=== PATIENT | female | born 1990 | race Caucasian/White ===

== ENCOUNTER 2018-10-10 05:19 | Inpatient (IN) | payer MEDICAID ==
[2018-10-10] MEDS ORDERED: CARBOPROST 250 MCG INJ IM ×2 (06:00→09:00)
[2018-10-10] MEDS ORDERED: METHYLERGONOVINE 0.2 MG INJ IM ×2 (06:00→09:00)
[2018-10-10] MEDS ORDERED: OXYTOCIN 30 UNITS/LR 500 ML IV ×2 (06:00→09:00)
[2018-10-10] MEDS ORDERED: MISOPROSTOL 200 MCG TAB PR ×2 (06:00→09:00)
[2018-10-10 06:02] LABS: ADD MAN DIFF? NO
[2018-10-10] MEDS: LACTATED RINGER'S 1,000 ML IV ×3 (06:03→23:09)
[2018-10-10 06:08] LABS: BASOPHILS % 0.3 % (0.0-2.0); EOSINOPHILS % 0.6 % (0.0-7.0); HEMATOCRIT 29.3 % (37.0-47.0); HEMOGLOBIN 9.5 g/dl (12.0-16.0); LYMPHOCYTES # 1.8 10^3/ul (0.8-2.9); LYMPHOCYTES % 26.3 % (15.0-51.0); MEAN CORPUSCULAR HEMOGLOBIN 28.4 pg (29.0-33.0); MEAN CORPUSCULAR HGB CONC 32.4 g/dl (32.0-37.0); MEAN CORPUSCULAR VOLUME 87.5 fl (82.0-101.0); MEAN PLATELET VOLUME 11.9 fl (7.4-10.4); MONOCYTE # 0.5 10^3/ul (0.3-0.9); MONOCYTES % 7.4 % (0.0-11.0); NEUTROPHIL # 4.4 10^3/ul (1.6-7.5); NEUTROPHILS % 64.2 % (39.0-77.0); PLATELET COUNT 171 10^3/UL (140-415); RED BLOOD COUNT 3.35 10^6/ul (4.20-5.40); RED CELL DISTRIBUTION WIDTH 14.6 % (11.5-14.5)
[2018-10-10 06:08] LABS: WHITE BLOOD COUNT 6.9 10^3/ul (4.8-10.8)
[2018-10-10 06:28] LABS: INR 0.94; PROTIME 12.7 Sec (11.9-14.9)
[2018-10-10 06:29] LABS: PARTIAL THROMBOPLASTIN TIME 27.4 Sec (23.0-35.0)
[2018-10-10 07:11] LABS: AMPHETAMINE/METHAMPHETAMINE Negative (NEGATIVE); BARBITURATES Negative (NEGATIVE); BENZODIAZEPINES Negative (NEGATIVE); CANNABINOIDS Negative (NEGATIVE); COCAINE Negative (NEGATIVE); OPIATES Negative (NEGATIVE)
[2018-10-10] MEDS ORDERED: morphine SULFATE/PF (10 MG/10 ML) INJ (07:31)
[2018-10-10] MEDS ORDERED: FENTAnyl 50 MCG/ML VIAL (07:31)
[2018-10-10 07:38] LABS: HEPATITIS B SURFACE ANTIGEN NEGATIVE (NEGATIVE)
[2018-10-10] MEDS ORDERED: DEXAMETHASONE 4 MG/ML 1 ML INJ (07:39)
[2018-10-10] MEDS ORDERED: ONDANSETRON 4 MG INJ (07:39)
[2018-10-10] MEDS ORDERED: PHENYLephrine (100 MCG/ML) 10ML SYG (08:10)
[2018-10-10] MEDS ORDERED: NALOXONE (0.4 MG/ML) INJ IV (08:30)
[2018-10-10] MEDS ORDERED: DIPHENHYDRAMINE 50 MG INJ IV (08:30)
[2018-10-10] MEDS ORDERED: ONDANSETRON 4 MG INJ IV (08:30)
[2018-10-10] MEDS ORDERED: HYDROmorphONE 0.5 MG/0.5 ML SYG IV ×2 (08:30)
[2018-10-10] MEDS ORDERED: ZOLPIDEM 5 MG TAB PO (08:30)
[2018-10-10] MEDS ORDERED: NACL 0.9% 3 ML SYG IV (09:00)
[2018-10-10] MEDS ORDERED: OXYCODONE/ACETAMINOPHEN (5/325) TAB PO ×2 (09:00)
[2018-10-10] MEDS: OXYTOCIN 30 UNITS/LR 500 ML IV ×2 (09:14→13:15)
[2018-10-10] MEDS: CEFAZOLIN 2 GM/50 ML (PMX) 50 ML IVPB ×3 (10:30→23:35)
[2018-10-10] MEDS: KETOROLAC 30 MG INJ IV (10:53)
[2018-10-10] MEDS: LANOLIN HPA 1 PKT TOP (13:13)
[2018-10-10] MEDS: IBUPROFEN 800 MG TAB PO ×2 (14:00→22:00)
[2018-10-10 14:56] LABS: RAPID PLASMA REAGIN NONREACTIVE (NR)
[2018-10-11] MEDS: IBUPROFEN 800 MG TAB PO ×3 (06:00→20:44)
[2018-10-11] MEDS: LACTATED RINGER'S 1,000 ML IV ×2 (06:00→14:00)
[2018-10-11] MEDS: CEFAZOLIN 2 GM/50 ML (PMX) 50 ML IVPB (06:06)
[2018-10-11] MEDS: KETOROLAC 30 MG INJ IV ×2 (06:07→06:56)
[2018-10-11 08:38] LABS: ADD MAN DIFF? NO
[2018-10-11 08:45] LABS: WHITE BLOOD COUNT 8.4 10^3/ul (4.8-10.8)
[2018-10-11 08:45] LABS: BASOPHILS % 0.2 % (0.0-2.0); EOSINOPHILS % 0.4 % (0.0-7.0); HEMATOCRIT 24.9 % (37.0-47.0); HEMOGLOBIN 8.1 g/dl (12.0-16.0); LYMPHOCYTES # 1.8 10^3/ul (0.8-2.9); LYMPHOCYTES % 20.9 % (15.0-51.0); MEAN CORPUSCULAR HEMOGLOBIN 28.4 pg (29.0-33.0); MEAN CORPUSCULAR HGB CONC 32.5 g/dl (32.0-37.0); MEAN CORPUSCULAR VOLUME 87.4 fl (82.0-101.0); MEAN PLATELET VOLUME 11.9 fl (7.4-10.4); MONOCYTE # 0.6 10^3/ul (0.3-0.9); MONOCYTES % 6.6 % (0.0-11.0); NEUTROPHILS % 71.2 % (39.0-77.0); PLATELET COUNT 138 10^3/UL (140-415); RED BLOOD COUNT 2.85 10^6/ul (4.20-5.40); RED CELL DISTRIBUTION WIDTH 14.7 % (11.5-14.5)
[2018-10-11] MEDS: LANOLIN HPA 1 PKT TOP (20:41)
[2018-10-11] MEDS: FERROUS SULFATE (EC) 325 MG TAB PO (20:42)
[2018-10-12] MEDS: IBUPROFEN 800 MG TAB PO ×3 (06:01→22:00)
[2018-10-12 08:28] LABS: ADD MAN DIFF? NO
[2018-10-12 08:34] LABS: WHITE BLOOD COUNT 9.3 10^3/ul (4.8-10.8)
[2018-10-12 08:34] LABS: BASOPHILS % 0.3 % (0.0-2.0); EOSINOPHILS # 0.1 10^3/ul (0.0-0.5); EOSINOPHILS % 1.1 % (0.0-7.0); HEMATOCRIT 28.1 % (37.0-47.0); HEMOGLOBIN 8.8 g/dl (12.0-16.0); LYMPHOCYTES # 1.8 10^3/ul (0.8-2.9); LYMPHOCYTES % 19.4 % (15.0-51.0); MEAN CORPUSCULAR HEMOGLOBIN 27.6 pg (29.0-33.0); MEAN CORPUSCULAR HGB CONC 31.3 g/dl (32.0-37.0); MEAN CORPUSCULAR VOLUME 88.1 fl (82.0-101.0); MEAN PLATELET VOLUME 11.3 fl (7.4-10.4); MONOCYTE # 0.6 10^3/ul (0.3-0.9); MONOCYTES % 6.2 % (0.0-11.0); NEUTROPHIL # 6.7 10^3/ul (1.6-7.5); NEUTROPHILS % 71.9 % (39.0-77.0); PLATELET COUNT 154 10^3/UL (140-415); RED BLOOD COUNT 3.19 10^6/ul (4.20-5.40)
[2018-10-12] MEDS: FERROUS SULFATE (EC) 325 MG TAB PO ×2 (09:49→21:26)
[2018-10-12] MEDS: LANOLIN HPA 1 PKT TOP (21:26)
[2018-10-13] MEDS: IBUPROFEN 800 MG TAB PO ×2 (06:08→13:36)
[2018-10-13] MEDS: FERROUS SULFATE (EC) 325 MG TAB PO (08:43)
[2018-10-13] MEDS: MEASLES,MUMPS,RUBELLA VACCINE INJ SC* (12:30)
== END 2018-10-13 14:30 | disposition home or self-care (01) | DRG 788 ==
LOC: L-D 05:19 → PP1 12:17
PROVIDERS: Obstetrics & Gynecology
PROC: 10D00Z1 Extraction of Products of Conception, Low, Open Approach (ICD-10-PCS; principal; 2018-10-10 07:30)
DX: O34.593 Maternal care for other abnormalities of gravid uterus, third trimester (principal); O34.211 Maternal care for low transverse scar from previous cesarean delivery; O94 Sequelae of complication of pregnancy, childbirth, and the puerperium; Z3A.37 37 weeks gestation of pregnancy; Z37.0 Single live birth
CPT/HCPCS: 80307; 85025; 85610; 85730; 86592; 86850; 86900; 86901; 86920; 87340; 99464